=== PATIENT | female | born 1990 | race Caucasian/White ===

== ENCOUNTER 2020-10-29 19:45 | Emergency (ER) | payer MEDICAID ==
[~2020-10-29] VITALS: Ht 157.5 cm; Wt 61.2 kg
[~2020-10-29 19:45] MED LIST: ACET-929; ONDANSETRON ODT 4 MG TABLET; SULF-169
[2020-10-29 19:55] VITALS: BP 105/73
== END 2020-10-29 22:51 | disposition left against medical advice (07) ==
LOC: ER 19:45
DX: O26.892 Other specified pregnancy related conditions, second trimester (principal); M54.2 Cervicalgia; Z53.21 Procedure and treatment not carried out due to patient leaving prior to being seen by health care provider; Z3A.17 17 weeks gestation of pregnancy